=== PATIENT | female | born 2000 | race Caucasian/White ===

== ENCOUNTER 2022-09-27 16:35 | Emergency (ER) | payer OTHER, MEDICAID, SELFPAY ==
[2022-09-27 16:42] VITALS: BP 129/82; PULSE 91; RESP 18; TEMP 36.7; O2SAT 98; BMI 38.5
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
[2022-09-27] MEDS: ACETAMINOPHEN 325 MG TABLET 975 MG PO (19:03)
[2022-09-27] MEDS: IBUPROFEN 400 MG TABLET 800 MG PO (19:03)
[2022-09-27 19:11] VITALS: BP 132/74; PULSE 74; RESP 18; TEMP 36.9; O2SAT 98
[2022-09-27 19:22] VITALS: BP 118/71; PULSE 82; RESP 20; TEMP 36.1; O2SAT 99
== END 2022-09-27 19:16 | disposition home or self-care (01) ==
PROVIDERS: Emergency Provider Emergency Medicine
DX: M54.2 Cervicalgia (principal); R51.9 Headache, unspecified; V89.2XXA Person injured in unspecified motor-vehicle accident, traffic, initial encounter
CPT/HCPCS: 99283